=== PATIENT | male | born 1985 | race Caucasian/White ===

== ENCOUNTER 2020-01-20 12:20 | Emergency (ER) | payer OTHER, SELFPAY ==
[2020-01-20 12:25] VITALS: BP 144/99; PULSE 92; RESP 18; TEMP 36.9; O2SAT 99
--- NOTE | 2020-01-20 12:30 | DI.RAD_ITS ---
EXAM: XR ANKLE LT COMPLETE CLINICAL HISTORY: twist/pain, felt crunch TECHNIQUE: 2D digital imaging was performed. COMPARISON: No exams were available for comparison FINDINGS: No acute fracture is identified. There is a smoothly marginated bony density at the medial malleolu s. A plantar calcaneal spur is seen. Soft tissues: Swelling over the lateral malleolus. The ankle mortise appears intact. IMPRESSION: Lateral soft tissue swelling. No acute bony abnormality.
--- NOTE | 2020-01-20 13:14 | ED.GENADUL_ITS ---
Discharge Plan Disposition Patient Disposition: HOME Condition: Stable Discharge Details Chief Complaint: Orthopedic Clinical Impression: Ankle sprain Primary Care Provider: None,None ED Provider: Venancio Rios Home Meds and New Rx's Prescriptions: No Action No Known Home Meds RF: 0 Discharge Instructions Instructions: Ankle Sprain (ED) Additional Instructions: Rest, elevate, cool compresses every 2 hours for 20 days. Wear splint and use crutches as needed, advance activity as tolerated. Please watch for new or worsening symptoms and return to the ER for any concerns. I do recommend establishing a local primary care provider for your ongoing outpatient needs Medical Decision Making Presents after twisting his left ankle. Patient appears well, nontoxic. He has neuro, vascular, tendon intact. Will obtain x-ray to rule out any bony involvement Reviewed x-ray, I see some soft tissue swelling as well as a well-corticated avulsion which appears old. Patient does report a severe sprain in the past that he never had had evaluated. Discussed x-ray findings with patient. Patient was placed into a an air stirrup splint and crutches given. Patient has no additional questions or concerns Medical Records Medical records reviewed: Yes I reviewed the patient's medical records. Imaging Data Radiologic Study: Attestation: I personally reviewed and interpreted this imaging study as follows: Imaging: X-Ray Radiologist's impression: Lateral soft tissue swelling, no acute bony abnormality HPI General Mode of arrival: ambulatory . Date/Time Provider Initiated Documentation: 01/20/20 12:24 . Limitations to Documentation: no limitations . Information obtained by: patient . HPI Narrative: This is a 34-year-old male with no significant past medical history reporting left ankle pain moderate rest more severe with movement or weightbearing. Approximately 45 minutes ago he slipped from a small step twisting his left ankle and hearing a crunch. He denies any other injury. Denies numbness, tingling, weakness. Related Data Home Medications Medication Instructions Recorded Confirmed Unknown [No Known Home Meds] 07/29/14 06/17/17 Allergies Allergy/AdvReac Type Severity Reaction Status Date / Time doxycycline AdvReac Intermediate Visual Unverified 01/20/20 12:34 Disturbances codeine AdvReac Psychosis Unverified 01/20/20 12:34 Penicillins AdvReac Diarrhea Unverified 01/20/20 12:34 General Stated Complaint: Orthopedic LINDA: 3 Review of Systems Constitutional Constitutional: Denies weakness Cardiovascular Cardiovascular: Denies chest pain and Denies dyspnea Respiratory Respiratory: Denies dyspnea Gastrointestinal Gastrointestinal: Denies nausea Musculoskeletal Musculoskeletal: Denies numbness and Denies tingling Integumentary/Breasts Skin/Breast: Denies rash Neurologic Neurologic: Denies numbness, Denies tingling and Denies weakness [facility] Social History Smoking/Tobacco Use Status: Current every day Tobacco Type: cigarettes Alcohol Intake: current Alcohol Intake frequency: a few times a week Alcohol type: beer Drug use: Never Substance use type: does not use Do you feel safe at home: Yes Do you feel safe in your relationship?: Yes Exam Const General: cooperative, healthy appearing, comfortable and no acute distress Orientation: alert and awake HENMT Head: normal to inspection, normocephalic and atraumatic Mouth: moist mucous membranes Eyes Conjunctivae: conjunctivae normal Neck Neck: normal visual inspection, trachea midline and supple Resp Effort & Inspection: normal respiratory effort and able to speak in complete sentences Cardio Rate: regular rate Rhythm: regular rhythm Skin General skin exam: no rashes or lesions noted Neuro General: patient alert, patient awake, moves all extremities and no focal motor deficits Sensory Exam: no sensory deficits noted Extrem Left lower extremity: full ROM, normal capillary refill and ankle Details: abnormal to inspection, tenderness Location: of the lateral malleolus and swelling Details: laterally; no cyanosis and no edema Psych Appearance: grossly normal Mental Status: mental status grossly normal Course Vital Signs Vital signs: Vital Signs Temperature 36.9 C 01/20/20 12:25 Pulse 92 H 01/20/20 12:25 Respiratory Rate 18 01/20/20 12:25 Blood Pressure 144/99 H 01/20/20 12:25 Pulse Oximetry 99 01/20/20 12:25 Temperature 36.9 C 01/20/20 12:25 Pulse 92 H 01/20/20 12:25 Respiratory Rate 18 01/20/20 12:25 Respiratory Effort Non-Labored 01/20/20 12:28 Blood Pressure 144/99 H 01/20/20 12:25 Blood Pressure Position Sitting 01/20/20 12:25 Pulse Oximetry 99 01/20/20 12:25 Oxygen Delivery Method Room Air 01/20/20 12:25 Oxygen Flow Rate 0 01/20/20 12:25 Pain Level 7 01/20/20 12:28
--- NOTE | 2020-01-20 13:35 | NUR.NOTE ---
pt is awake alert awaiting radiology results. states his pain is under control. Nursing Note:
[2020-01-20 13:50] VITALS: BP 140/92; PULSE 74; RESP 16; O2SAT 100
== END 2020-01-20 13:48 | disposition home or self-care (01) ==
PROVIDERS: Emergency Provider Physician Assistant
DX: S93.402A Sprain of unspecified ligament of left ankle, initial encounter (principal); X50.9XXA Other and unspecified overexertion or strenuous movements or postures, initial encounter
CPT/HCPCS: 99283; 73610; E0114; L4350

== ENCOUNTER 2020-04-09 07:43 | Outpatient (CLI) | payer OTHER, SELFPAY ==
[2020-04-11 09:57] LABS: SARS-CoV-2 RNA Undetected (Undetected); SARS-CoV-2 Specimen Source Nasopharynx
== END 2020-04-09 08:03 ==
PROVIDERS: Visit Provider Family Medicine
DX: Z20.828 Contact with and (suspected) exposure to other viral communicable diseases (principal)
CPT/HCPCS: U0003

== ENCOUNTER 2020-12-23 15:08 | Emergency (ER) | payer OTHER, SELFPAY ==
[2020-12-23] VITALS (27 sets, daily range): BP systolic 129–157; BP diastolic 72–92; PULSE 68–103; RESP 8–19; TEMP 36.6; O2SAT 97–99
--- NOTE | 2020-12-23 15:00 | RT.EKG_ITS ---
APPROVED REPORT Exam: Resting ECG Patient Location: E HR:94 bpm ECG Measurements Heart Rate 94 AXIS OK 123 P 22 QRSd 83 QRS 26 QT 348 T 55 QTc 438 Conclusion Sinus rhythm...normal P axis, V-rate 60- 99 Ventricular premature complex...V complex w/ short R-R interval. PVCs. No STEMI. I have reviewed and interpreted ECG and agree with software generated interpretation.TN.
[2020-12-23 15:33] LABS: Abs Immature Grans 0.01 10^3/uL (0.0-0.06); Absolute Basophil Count 0.05 10^3/uL (0.0-0.2); Absolute Eosinophil Count 0.22 10^3/uL (0.0-0.7); Absolute Lymphocyte Count 2.52 10^3/uL (1.2-3.4); Absolute Monocyte Count 0.55 10^3/uL (0.1-0.8); Absolute Neutrophil Count 4.43 10^3/uL (1.2-6.7); Basophils % 0.6; Eosinophils % 2.8; HCT 46.1 % (40.0-50.0); HGB 15.6 g/dL (13.5-17.5); Immature Grans % 0.1; Lymphocytes % 32.4; MCH 30.2 pg (27.0-33.0); MCHC 33.8 % (32.0-36.0); MCV 89.2 fL (80-95); MPV 9.2 fL (8.0-11.0); Monocytes % 7.1; Nucleated RBC 0 %; Platelet Count 211 10^3/uL (130-400); RBC 5.17 10^6/uL (4.36-5.78); RDW 12.4 % (11.8-14.1); WBC 7.78 10^3/uL (4.4-10.8)
[2020-12-23 15:45] LABS: PTT Activated 24.9 sec (21.0-27.5); Prothrombin Time 9.8 sec (9.3-11.0)
[2020-12-23 15:56] LABS: ALT 30 U/L (16-63); AST 16 U/L (15-37); Albumin 3.9 g/dL (3.4-5.0); Alkaline Phosphatase 64 U/L (46-116); Anion Gap 9.6 mmol/L (3-11); BUN 22 mg/dL (7-18); Bilirubin, Total 0.3 mg/dL (0.2-1.0); CO2 26.4 mmol/L (21.0-32.0); Calcium 8.5 mg/dL (8.5-10.1); Chloride 104 mmol/L (98-107); Glucose 128 mg/dL (74-106); Magnesium 2.1 mg/dL (1.8-2.4); Potassium 3.9 mmol/L (3.5-5.1); Sodium 140 mmol/L (136-145); TSH (W/Ref FT4) 0.97 uIU/mL (0.36-3.74); Total Protein 7.3 g/dL (6.4-8.2)
--- NOTE | 2020-12-23 16:00 | DI.CT_ITS ---
EXAM: CT CHEST PE CTA CLINICAL HISTORY: chest pain, palpitations, r/o PE. TECHNIQUE: Imaging Protocol: CT angiography of the chest was performed using pulmonary embolus grayson col. Multi planar reconstructions were performed. CONTRAST MATERIAL: Intravenous: Omnipaque 350 Contrast volume: 100 cc COMPARISON: No exams were available for comparison FINDINGS: CHEST: PULMONARY ARTERIES: Less than optimal bolus injection. There are no intraluminal filling defects to suggest acute pulmonary emboli. LUNGS: There are no infiltrates nor evidence of pulmonary infarction.. There are no pleural effusions . MEDIASTINUM: There is no hilar nor mediastinal adenopathy. Visualized thyroid unremarkable. CARDIAC: Heart size is normal. There is no pericardial effusion.Caliber of the thoracic aorta is wit hin normal limits. There is no evidence of aortic dissection. There is no evidence of shift of the interventricular septum. OSSEOUS: No significant osseous lesions.. OTHER: The lower most image of this study reveals a partially included 2.1 by 2.0 centimeter hypodens e lesion in the spleen, difficult to assess on this study. May represent cyst or hemangioma or other more significant pathology. IMPRESSION: 1. Suboptimal bolus injection. No evidence of obvious acute pulmonary emboli. No evidence of pulmon jose l infarction.No pleural effusions. 2. No evidence of aortic dissection. No pericardial effusion. 3. Incidentally noted is a 2 centimeter x 2 centimeter hypodense lesion in the spleen, only partially included in the field of view. This may represent a benign cyst or hemangioma but cannot exclude ot her more concerning splenic pathology. Recommend further imaging, starting with ultrasound. RADIATION DOSE DELIVERED: LINK-TO-SR Total DLP DATA REPOSITORY: All CT scans at this facility are submitted to the National Radiology Data Registry (NRDR) Dose Index Registry (DIR) with the [employer] ([employer]). RADIATION OPTIMIZATION: All CT scans at this facility use at least one of these dose optimization te chniques: automated exposure control; mA and/or kV adjustment per patient size (includes targeted exa ms where dose is matched to clinical indication); or iterative reconstruction.
--- NOTE | 2020-12-23 16:00 | DI.CT_ITS ---
EXAM: CT HEAD WO CLINICAL HISTORY: dizziness, vertigo, r/o acute cva. TECHNIQUE: Imaging Protocol: Axial computed tomography images with coronal and sagittal reformatted images were created and reviewed COMPARISON: No exams were available for comparison FINDINGS: There are no skull fractures. Prominent polyp or post inflammatory retention cysts noted in the rig ht maxillary sinus, this superimposed upon mucosal thickening. The visualized left maxillary sinus i s clear as are the remainder of the paranasal sinuses and mastoid air cells. There is no evidence of intracranial hemorrhage, mass effect, or shift of midline structures. There are no extra-axial fluid collections. The ventricles are not enlarged or shifted and there is no blo od within the ventricular system nor within the basal cisterns. IMPRESSION: No acute intracranial findings on this noninfused CT scan of the brain. Retention cyst or polyp measuring 2.2 x 2.2 cm in the right maxillary sinus noted, this superimposed upon echoes all thickening. No associated fluid level nor bone dehiscence. RADIATION DOSE DELIVERED: 826.57mGy.cm Total DLP DATA REPOSITORY: All CT scans at this facility are submitted to the National Radiology Data Registry (NRDR) Dose Index Registry (DIR) with the [employer] ([employer]). RADIATION OPTIMIZATION: All CT scans at this facility use at least one of these dose optimization te chniques: automated exposure control; mA and/or kV adjustment per patient size (includes targeted exa ms where dose is matched to clinical indication); or iterative reconstruction.
[2020-12-23 16:11] LABS: Troponin I < 0.05 ng/mL (<0.06)
--- NOTE | 2020-12-23 16:15 | W.ED.GENAD ---
Discharge Plan Disposition Patient Disposition: HOME Condition: Improving Discharge Details Clinical Impression: Palpitations, Atypical chest pain, Dizziness, Stress Primary Care Provider: None,None ED Provider: Beryl Wilde Home Meds and New Rx's Prescriptions: No Action No Known Home Meds RF: 0 Discharge Instructions Instructions: Chest Pain (ED), Heart Palpitations (ED), Stress (ED), Dizziness (ED) Additional Instructions: Drink plenty of fluids and get plenty of rest. Your blood pressure was moderately elevated here today. Be sure to watch your sodium intake as a diet high in sodium can contribute to high blood pressure. Return the traffic monitor specialist to the hospital as directed by respiratory therapy. Call your primary care doctor's office tomorrow to schedule a follow-up appointment for reevaluation in the next 1 to 2 weeks and for results of your traffic monitor specialist and for recheck of your blood pressure. Return immediately to the emergency department if you develop any worsening or new concerning symptoms. 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 EKG on arrival notes a rate of 94, PVCs, sinus, no STEMI and nondiagnostic. Blood pressure initially hypertensive at 157/92. Blood pressure then improved to 138/80. Patient appears anxious. He has minimal left anterior lower chest tenderness to palpation. His lungs are clear. He appears nontoxic. Considering patient's long history of palpitations that awaken him from sleep, appears more likely consistent with anxiety rather than PE or arrhythmia. Considering patient's smoking history and complaints of chest pain, will check screening labs and a CT chest to rule out PE. Patient describes his intermittent dizziness as a vertigo sensation. He has no focal deficits and did not suspect an acute neurologic process, however will obtain a CT head. Will give patient IV fluids, IV Ativan and IV Toradol and reassess. Labs and imaging reviewed. Normal white blood cell count. Troponin negative. TSH negative. CT head negative. CT chest negative. Patient reassessed and he feels better and feels good to go home. Considering patient's frequent palpitations, will send with a 48-hour Holter monitor. Occasional PVCs noted here on the monitor otherwise no evidence of other arrhythmia. Discussed that his symptoms may be related to stress as he admits to an increase this recently. Patient does not have a primary care doctor. Will place patient on care management list to arrange for a follow-up appointment with the primary care doctor for reevaluation and for results of the traffic monitor specialist. Usual and customary return precautions given prior to discharge. Medical Records Medical records reviewed: Yes I reviewed the patient's medical records. Imaging Data Radiologic Study: Radiologist's impression: CT Head Without Contrast Exam date and time: 12/23/2020 4:21 PM Age: 35 years old Clinical indication: Other: Dizziness, vertigo, R/O acute CVA TECHNIQUE: Imaging protocol: Computed tomography of the head without contrast. Radiation optimization: All CT scans at this facility use at least one of these dose optimization techniques: automated exposure control; mA and/or kV adjustment per patient size (includes targeted exams where dose is matched to clinical indication); or iterative reconstruction. COMPARISON: No relevant prior studies available. FINDINGS: Brain: Normal. No hemorrhage. Unremarkable white matter. No mass effect. Cerebral ventricles: No ventriculomegaly. Bones/joints: Unremarkable. No acute fracture. Paranasal sinuses: A mucous retention cyst of the right maxillary sinus is incidentally Mastoid air cells: Visualized mastoid air cells are well aerated. Soft tissues: Unremarkable. IMPRESSION: No acute intracranial abnormality. CT Angiography Chest With Contrast Exam date and time: 12/23/2020 4:30 PM Age: 35 years old Clinical indication: Other: Chest pain, palpitations, R/O pe TECHNIQUE: Imaging protocol: Computed tomographic angiography of the chest with contrast. 3D rendering (Not supervised by radiologist): MIP and/or 3D reconstructed images were created by the technologist. Radiation optimization: All CT scans at this facility use at least one of these dose optimization techniques: automated exposure control; mA and/or kV adjustment per patient size (includes targeted exams where dose is matched to clinical indication); or iterative reconstruction. Contrast material: OMNIPAQUE 350; Contrast volume: 100 ml; Contrast route: INTRAVENOUS (IV); COMPARISON: No relevant prior studies available. FINDINGS: Pulmonary arteries: Normal. No pulmonary emboli. Aorta: Unremarkable. No aortic aneurysm. No aortic dissection. Lungs: Unremarkable. No consolidation. No masses. Pleural spaces: Unremarkable. No pneumothorax. No pleural effusion. Heart: Unremarkable. No cardiomegaly. No pericardial effusion. Lymph nodes: Unremarkable. No enlarged lymph nodes. Bones/joints: Unremarkable. No acute fracture. Soft tissues: Unremarkable. IMPRESSION: No acute findings. Lab Data Lab results reviewed: Yes I reviewed the patient's lab results. Labs: Laboratory Tests Range/Units 12/23/20 12/23/20 12/23/20 15:28 15:28 15:28 WBC (4.4-10.8) 10^3/uL 7.78 RBC (4.36-5.78) 10^6/uL 5.17 Hgb (13.5-17.5) g/dL 15.6 Hct (40.0-50.0) % 46.1 MCV (80-95) fL 89.2 MCH (27.0-33.0) pg 30.2 MCHC (32.0-36.0) % 33.8 RDW (11.8-14.1) % 12.4 Plt Count (130-400) 10^3/uL 211 MPV (8.0-11.0) fL 9.2 Immature Gran % 0.1 Neutrophils % 57.0 Lymphocytes % 32.4 Monocytes % 7.1 Eosinophils % 2.8 Basophils % 0.6 Nucleated RBC % % 0 Absolute Neutrophils (1.2-6.7) 10^3/uL 4.43 Absolute Lymphocytes (1.2-3.4) 10^3/uL 2.52 Absolute Monocytes (0.1-0.8) 10^3/uL 0.55 Absolute Eosinophils (0.0-0.7) 10^3/uL 0.22 Absolute Basophils (0.0-0.2) 10^3/uL 0.05 PT (9.3-11.0) sec 9.8 INR (0.9-1.1) 1.0 APTT (21.0-27.5) sec 24.9 Sodium (136-145) mmol/L 140 Potassium (3.5-5.1) mmol/L 3.9 Chloride (98-107) mmol/L 104 Carbon Dioxide (21.0-32.0) mmol/L 26.4 Anion Gap (3-11) mmol/L 9.6 BUN (7-18) mg/dL 22 H Creatinine (0.70-1.30) mg/dL 1.0 Estimated GFR/1.73 m2 (mL/min/1.73m2) >= 60.00 Glucose (74-106) mg/dL 128 H Calcium (8.5-10.1) mg/dL 8.5 Magnesium (1.8-2.4) mg/dL 2.1 Total Bilirubin (0.2-1.0) mg/dL 0.3 AST (15-37) U/L 16 ALT (16-63) U/L 30 Alkaline Phosphatase (46-116) U/L 64 Troponin I (<0.06) ng/mL < 0.05 Total Protein (6.4-8.2) g/dL 7.3 Albumin (3.4-5.0) g/dL 3.9 TSH (0.36-3.74) uIU/mL 0.97 ECG Data Attestation: I personally reviewed and interpreted this ECG (s) as follows: Interpretation: Rate of 94, PVCs, sinus, no acute ST elevation or depression. VT 123. QRS 83. QTc 438. HPI General Mode of arrival: ambulatory. Date/Time Provider Initiated Documentation: 12/23/20 15:23. Limitations to Documentation: no limitations. Information obtained by: patient. 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 Patient states he has been awaking in the night for the past year with sensation of heart pounding and palpitations. He states this does happen throughout the day at times and has been occurring more frequently over the past few weeks. He states he also notices palpitations after he smokes a cigarette and when he feels mentally stressed . He also states that he had an episode of dizziness a few weeks ago which scared him and has been occurring more frequently. Patient states he was standing when he felt a lightheaded and spinning sensation which then resolved after a few minutes. Patient states he has been experiencing intermittent episodes of spinning sensations occurring at random when sitting and standing. He also states that today he was laying down and turned to his side and developed left-sided chest pain. He states it radiated to his back and left arm. Patient states his left-sided chest pain is currently /10. He also admits to intermittent left anterior lower chest pain that he notes sometimes after working and is tender to touch and worse with movement. He states he has had increased stress lately and is taking care of a puppy and has not been sleeping. He states he feels that his symptoms are likely due to to stress and anxiety. He states he noticed when talking with the nurse here and he became nervous, there were extra beats on the monitor. He denies any fever, cough, shortness of breath, nausea, vomiting, abdominal pain, recent travel, recent surgeries, leg pain or swelling. Related Data Home Medications Medication Instructions Recorded Confirmed Unknown [No Known Home Meds] 07/29/14 12/23/20 Allergies Allergy/AdvReac Type Severity Reaction Status Date / Time doxycycline AdvReac Intermediate Visual Unverified 01/20/20 12:34 Disturbances codeine AdvReac Psychosis Unverified 01/20/20 12:34 Penicillins AdvReac Diarrhea Unverified 01/20/20 12:34 tetracycline AdvReac Visual Unverified 12/23/20 15:16 Disturbances General Stated Complaint: Chest Pain LINDA: 2 Review of Systems All systems reviewed & are unremarkable except as noted in HPI and below Constitutional Constitutional: Reports as per HPI, Denies chills and Denies fever(s) Eyes Eyes: Denies blurry vision ENT Ears, Nose, Mouth, and Throat: Denies dizziness, Denies sore throat and Denies throat swelling Cardiovascular Cardiovascular: Reports chest pain, Reports rapid heart rate and Reports dyspnea Respiratory Respiratory: Denies cough and Reports dyspnea Gastrointestinal Gastrointestinal: Denies abdominal pain, Denies diarrhea and Denies vomiting Genitourinary Genitourinary: Denies hematuria and Denies dysuria Musculoskeletal Musculoskeletal: Denies back pain and Denies numbness Integumentary/Breasts Skin/Breast: Denies lesions and Denies rash Neurologic Neurologic: Denies dizziness, Denies localized weakness and Denies numbness Allergic/Immunologic Allergic/Immunologic: Denies throat swelling [facility] Medical History (Updated 12/23/20 @ 17:31 by Beryl Wilde DO) Hirschsprung's disease Surgical History (Updated 12/23/20 @ 16:16 by Beryl Wilde DO) History of abdominal surgery Multiple secondary to Hirschsprung's disease Social History Smoking/Tobacco Use Status: Current every day Tobacco Type: cigarettes Smoking risk assessment performed?: Yes Alcohol Intake: current Alcohol Intake frequency: a few times a week Alcohol type: beer Drug use: Never Substance use type: does not use Do you feel safe at home: Yes Do you feel safe in your relationship?: Yes Exam Const General: cooperative, healthy appearing and no acute distress HENMT Head: normal to inspection Ears: hearing grossly normal bilaterally, external ears normal and TM's normal bilaterally General nose exam: external nose normal Face and sinus: normal facial exam Mouth: oral mucosae normal Eyes General: appearance normal, both eyes and all related structures Pupils: PERRL EOM: EOM intact bilaterally Neck Neck: normal visual inspection and No submandibular swelling Lymphatic: no lymphadenopathy noted Chest Chest: normal inspection of the chest Chest/axillae images: 1. Localized area of tenderness to palpation L anterior inferior chest Resp Effort & Inspection: normal respiratory effort and able to speak in complete sentences Auscultation: clear to auscultation bilaterally Cardio Rate: regular rate Rhythm: regular rhythm GI Inspection: normal to inspection Palpation: soft, not firm, not rigid and nontender Auscultation: normal bowel sounds Skin General skin exam: no rashes or lesions noted Neuro General: patient alert, patient awake and patient oriented x3 Cognition: normal cognition Speech: speech normal Motor: muscle tone normal throughout Sensory Exam: no sensory deficits noted Extrem General: normal to inspection, full ROM, capillary refill normal, no calf tenderness bilaterally and no edema Psych Appearance: grossly normal Mental Status: mental status grossly normal Speech and Movement: speech and movement normal Affect: normal affect Course Vital Signs Vital signs: Vital Signs Temperature 97.9 F 12/23/20 15:13 Pulse 92 H 12/23/20 15:13 Respiratory Rate 15 12/23/20 15:13 Blood Pressure 157/92 H 12/23/20 15:13 Pulse Oximetry 98 12/23/20 15:13 Temperature 97.9 F 12/23/20 15:13 Temperature Source Skin 12/23/20 15:13 Pulse 95 H 12/23/20 15:30 Pulse 91 H 12/23/20 15:31 Respiratory Rate 19 12/23/20 15:31 Respiratory Effort Non-Labored 12/23/20 15:31 Respiratory Depth Normal 12/23/20 15:31 Respiratory Pattern Normal 12/23/20 15:31 Blood Pressure 144/88 H 12/23/20 15:30 Blood Pressure Mean 100 12/23/20 15:30 Blood Pressure Position Sitting 12/23/20 15:13 Pulse Oximetry 98 12/23/20 15:31 Oxygen Delivery Method Room Air 12/23/20 15:13 Oxygen Flow Rate 0 12/23/20 15:13 Pain Level 3 12/23/20 15:13 Lab/Test Results Lab/Test Results: Laboratory Tests Range/Units 12/23/20 12/23/20 12/23/20 15:28 15:28 15:28 WBC (4.4-10.8) 10^3/uL 7.78 RBC (4.36-5.78) 10^6/uL 5.17 Hgb (13.5-17.5) g/dL 15.6 Hct (40.0-50.0) % 46.1 MCV (80-95) fL 89.2 MCH (27.0-33.0) pg 30.2 MCHC (32.0-36.0) % 33.8 RDW (11.8-14.1) % 12.4 Plt Count (130-400) 10^3/uL 211 MPV (8.0-11.0) fL 9.2 Immature Gran % 0.1 Neutrophils % 57.0 Lymphocytes % 32.4 Monocytes % 7.1 Eosinophils % 2.8 Basophils % 0.6 Nucleated RBC % % 0 Absolute Neutrophils (1.2-6.7) 10^3/uL 4.43 Absolute Lymphocytes (1.2-3.4) 10^3/uL 2.52 Absolute Monocytes (0.1-0.8) 10^3/uL 0.55 Absolute Eosinophils (0.0-0.7) 10^3/uL 0.22 Absolute Basophils (0.0-0.2) 10^3/uL 0.05 PT (9.3-11.0) sec 9.8 INR (0.9-1.1) 1.0 APTT (21.0-27.5) sec 24.9 Sodium (136-145) mmol/L 140 Potassium (3.5-5.1) mmol/L 3.9 Chloride (98-107) mmol/L 104 Carbon Dioxide (21.0-32.0) mmol/L 26.4 Anion Gap (3-11) mmol/L 9.6 BUN (7-18) mg/dL 22 H Creatinine (0.70-1.30) mg/dL 1.0 Estimated GFR/1.73 m2 (mL/min/1.73m2) >= 60.00 Glucose (74-106) mg/dL 128 H Calcium (8.5-10.1) mg/dL 8.5 Magnesium (1.8-2.4) mg/dL 2.1 Total Bilirubin (0.2-1.0) mg/dL 0.3 AST (15-37) U/L 16 ALT (16-63) U/L 30 Alkaline Phosphatase (46-116) U/L 64 Troponin I (<0.06) ng/mL < 0.05 Total Protein (6.4-8.2) g/dL 7.3 Albumin (3.4-5.0) g/dL 3.9 TSH (0.36-3.74) uIU/mL 0.97
[2020-12-23] MEDS: Omnipaque 350 MG/ML 100 ML BTL IJ (16:37)
[2020-12-23] MEDS: Normal Saline Flush 10 ML SYR IVP (16:38)
[2020-12-23] MEDS: Normal Saline - Diluent 50 ML VIAL IV (16:38)
--- NOTE | 2020-12-23 16:49 | DI.VRAD_ITS ---
PROCEDURE INFORMATION: Exam: CT Angiography Chest With Contrast Exam date and time: 12/23/2020 4:30 PM Age: 35 years old Clinical indication: Other: Chest pain, palpitations, R/O pe TECHNIQUE: Imaging protocol: Computed tomographic angiography of the chest with contrast. 3D rendering (Not supervised by radiologist): MIP and/or 3D reconstructed images were created by the technologist. Radiation optimization: All CT scans at this facility use at least one of these dose optimization techniques: automated exposure control; mA and/or kV adjustment per patient size (includes targeted exams where dose is matched to clinical indication); or iterative reconstruction. Contrast material: OMNIPAQUE 350; Contrast volume: 100 ml; Contrast route: INTRAVENOUS (IV); COMPARISON: No relevant prior studies available. FINDINGS: Pulmonary arteries: Normal. No pulmonary emboli. Aorta: Unremarkable. No aortic aneurysm. No aortic dissection. Lungs: Unremarkable. No consolidation. No masses. Pleural spaces: Unremarkable. No pneumothorax. No pleural effusion. Heart: Unremarkable. No cardiomegaly. No pericardial effusion. Lymph nodes: Unremarkable. No enlarged lymph nodes. Bones/joints: Unremarkable. No acute fracture. Soft tissues: Unremarkable. IMPRESSION: No acute findings. Dictated and Authenticated by: Raymon James MD. Ordering:JOSELITO Cordoba MD
--- NOTE | 2020-12-23 16:49 | DI.VRAD_ITS ---
PROCEDURE INFORMATION: Exam: CT Head Without Contrast Exam date and time: 12/23/2020 4:21 PM Age: 35 years old Clinical indication: Other: Dizziness, vertigo, R/O acute CVA TECHNIQUE: Imaging protocol: Computed tomography of the head without contrast. Radiation optimization: All CT scans at this facility use at least one of these dose optimization techniques: automated exposure control; mA and/or kV adjustment per patient size (includes targeted exams where dose is matched to clinical indication); or iterative reconstruction. COMPARISON: No relevant prior studies available. FINDINGS: Brain: Normal. No hemorrhage. Unremarkable white matter. No mass effect. Cerebral ventricles: No ventriculomegaly. Bones/joints: Unremarkable. No acute fracture. Paranasal sinuses: A mucous retention cyst of the right maxillary sinus is incidentally Mastoid air cells: Visualized mastoid air cells are well aerated. Soft tissues: Unremarkable. IMPRESSION: No acute intracranial abnormality. Dictated and Authenticated by: Raymon James MD. Ordering:JOSELITO Cordoba MD
[2020-12-23] MEDS: Normal Saline 1,000 ML 1000 ML IV (17:21)
--- NOTE | 2020-12-23 17:30 | HOLTER_ITS ---
APPROVED REPORT Exam Type: HOLTER MONITOR APPLICATION Reason for Test: Palpitations Patient Location: E Conclusion This is a 48-hour Holter monitor ordered for indication of dizziness. The patient was in normal sinus rhythm for the majority of the recording with an average heart rate o f 90 bpm There were no episodes of ventricular tachycardia and rare PVCs. There were no episodes of supraventricular tachycardia and 8 total PACs. There were no episodes of atrial fibrillation, no pauses greater than 3 seconds and no evidence of hi gh degree heart block. There were numerous patient triggered events associated with activities such as being scared by dog or being annoyed none of which were associated with significant arrhythmia.
[2020-12-23] MEDS: Ketorolac 30 MG/ML VIAL IVP (17:41)
--- NOTE | 2020-12-23 17:55 | NUR.NOTE ---
Referral to Care Management to establish pcp in 1 week for chest pain, a 48 hour holter monitor was placed 12/23/20.Nursing Note:
== END 2020-12-23 18:15 | disposition home or self-care (01) ==
PROVIDERS: Physician Assistant; Emergency Provider Physician Assistant
DX: R00.2 Palpitations (principal); R07.89 Other chest pain; R42 Dizziness and giddiness; F43.8 Other reactions to severe stress; R03.0 Elevated blood-pressure reading, without diagnosis of hypertension
CPT/HCPCS: 36415; 71275; 80053; 93005; 96361; 96374; 99285; 70450; 83735; 84443; 84484; 85025; 85610; 85730; 93010; 93225; J1885; J3490

== ENCOUNTER 2020-12-23 17:15 | Outpatient (RCR) | payer OTHER, SELFPAY | END 2020-12-26 23:59 | disposition home or self-care (01) | LOC: RT 17:15 | PROVIDERS: Visit Provider Physician Assistant | DX: R00.2 Palpitations (principal) | CPT/HCPCS: 93225; 93226 ==

== ENCOUNTER 2021-01-25 01:49 | Outpatient (CLI) | payer OTHER, SELFPAY ==
[2021-01-25 13:16] LABS: Hemoglobin A1C 5.6 % (<5.7)
[2021-01-25 13:20] LABS: Cholesterol 220 mg/dL (<200); Triglyceride 100 mg/dL (<150)
[2021-01-25 13:39] LABS: Calculated LDL 157 mg/dL (<100); HDL Cholesterol 43 mg/dL (40-60)
== END 2021-01-25 01:50 | disposition home or self-care (01) ==
LOC: LOS 01:50
PROVIDERS: PCP Nurse Practitioner Family; Visit Provider Nurse Practitioner Family
DX: Z13.1 Encounter for screening for diabetes mellitus (principal); Z13.220 Encounter for screening for lipoid disorders
CPT/HCPCS: 36415; 80061; 83036

== ENCOUNTER 2022-03-08 11:00 | Outpatient (REF) | payer OTHER, SELFPAY ==
[2022-03-09 13:42] LABS: COVID-19 RT-PCR UVMMC Result Negative (Negative)
== END 2022-03-08 11:01 | disposition home or self-care (01) ==
LOC: LBN 11:00
PROVIDERS: PCP Nurse Practitioner Family; Visit Provider Nurse Practitioner Family
DX: Z20.822 Contact with and (suspected) exposure to COVID-19 (principal); J34.89 Other specified disorders of nose and nasal sinuses
CPT/HCPCS: U0003

== ENCOUNTER 2022-03-22 09:31 | Emergency (ER) | payer OTHER, SELFPAY ==
[2022-03-22 09:33] VITALS: BP 175/96; PULSE 108; RESP 16; TEMP 36.7; O2SAT 99
--- NOTE | 2022-03-22 09:34 | W.ED.GENAD ---
Discharge Plan Disposition Patient Disposition: HOME Condition: Stable Discharge Details Clinical Impression: Accidental benzocaine overdose Primary Care Provider: Dao Nicolas ED Provider: Beryl Wilde Home Meds and New Rx's Prescriptions: Continued amoxicillin-pot clavulanate [Augmentin] 875-125 mg tablet 1 tab PO BID Qty: 20 0RF Discharge Instructions Instructions: Benzocaine/Menthol (By mouth) Additional Instructions: Drink plenty of fluids and get plenty of rest. Refrain from any further Orajel today. When you use it, place a small amount on a Q-tip to place to the affected areas. Follow-up with your primary care doctor in 1 week as needed. Return to the emergency department with any worsening or new concerning symptoms. Discharge Data Discharge Date/Time-TO BE ENTERED AT DEPARTURE: 03/22/22 10:36 Discharge Physician: Beryl Wilde Medical Decision Making 0962 -- 36yo M presents for nausea after ingesting too much orajel over a 90 minute period this morning. Patient states he called poison control and was advised to come here for further evaluation mainly for concern with benzocaine 1000 --discussed with poison control -- --with benzocaine -- with toxic overdose which may be unclear in the amount the patient ingested, concern would be methemoglobinemia. Can consider checking a CBC and methemoglobin but if patient has no complaint of shortness of breath, no signs of duskiness or cyanosis with normal oxygen saturation, likely no lab tests needed. -- With menthol, can mostly cause GI symptoms and recommends antiemetic and fluids. -- Can consider observation for 1 hour, however if patient is stable at this time, as his ingestion was 4.5 hours ago, can likely discharge at this time. 1030 --patient states he would rather go home and feels much better. He declined any antiemetics. Discussed that his symptoms could be multifactorial in the setting of lack of sleep, significant caffeine intake in addition to taking a strong antibiotic such as Augmentin. He states his allergy to penicillin in the past has been nausea and diarrhea. He is advised to drink plenty of fluids, eat yogurt, take a probiotic and make sure to take the antibiotic with food. He declines any antiemetic on discharge. His blood pressure significantly improved to 136/80. Oxygen saturation remained within normal limits. Advised to follow up with the primary care doctor for re-evaluation. Usual and customary return precautions given prior to discharge. Medical Records Medical records reviewed: Yes I reviewed the patient's medical records. HPI General Mode of arrival: ambulatory. Date/Time Provider Initiated Documentation: 03/22/22 09:32. Limitations to Documentation: no limitations. Information obtained by: patient. HPI Narrative: Patient is a 36-year-old male who presents to the ED with a complaint of nausea, fatigue and polyuria since 1 hour after ingesting what he describes was a dollop of orajel over a 90 minute period this morning. Patient states between 4 AM and 530 he placed approximately a toothpaste size amount of Orajel within his mouth at the site of a tooth infection and feels he may have swallowed some. He states approximately 30 minutes later he developed nausea, fatigue and felt that he was urinating frequently. He denies any dysuria, hematuria or penile discharge. He states he also only slept 3 hours and ingested a large amount of coffee this morning. He states his symptoms are now overall improved but with some nausea. He states he called poison control and their main concern of ingredients is benzocaine and advised him to come to the emergency department for further evaluation. Related Data Home Medications Medication Instructions Recorded Confirmed amoxicillin 875 mg-potassium 1 tab PO BID #20 tabs 02/21/21 03/22/22 clavulanate 125 mg tablet (Augmentin) Previous Rx's Medication Instructions Recorded amoxicillin 875 mg-potassium 1 tab PO BID #20 tabs 02/21/21 clavulanate 125 mg tablet (Augmentin) Allergies Allergy/AdvReac Type Severity Reaction Status Date / Time doxycycline AdvReac Intermediate Visual Verified 03/22/22 09:39 Disturbances codeine AdvReac Psychosis Verified 03/22/22 09:39 Penicillins AdvReac Diarrhea Verified 03/22/22 09:39 tetracycline AdvReac Visual Verified 03/22/22 09:39 Disturbances General Stated Complaint: OD/Poison LINDA: 2 Review of Systems All systems reviewed & are unremarkable except as noted in HPI and below Constitutional Constitutional: Reports as per HPI, Denies chills and Denies fever(s) Eyes Eyes: Denies blurry vision ENT Ears, Nose, Mouth, and Throat: Denies dizziness, Denies sore throat and Denies throat swelling Cardiovascular Cardiovascular: Denies chest pain and Denies dyspnea Respiratory Respiratory: Denies cough and Denies dyspnea Gastrointestinal Gastrointestinal: Denies abdominal pain, Denies diarrhea, Reports nausea and Denies vomiting Genitourinary Genitourinary: Denies hematuria and Denies dysuria Musculoskeletal Musculoskeletal: Denies back pain and Denies numbness Integumentary/Breasts Skin/Breast: Denies lesions and Denies rash Neurologic Neurologic: Denies dizziness, Denies localized weakness and Denies numbness Allergic/Immunologic Allergic/Immunologic: Denies throat swelling PFSH All Active Problems (Updated 03/22/22 @ 10:25 by Beryl Wilde DO) Accidental benzocaine overdose (Acute) Sinusitis (Acute) Smoker (Acute) Colonic dysmotility (Acute) left Palpitations (Acute) Dizziness (Acute) Stress (Acute) Medical History (Updated 03/22/22 @ 10:25 by Beryl Wilde DO) Colocutaneous fistula repair Enterocolitis 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 Paternal Grandmother , 80'S Depression Social History (Updated 01/08/21 @ 08:22 by Eda Narvaez) Smoking/Tobacco Use Status: Current every day Tobacco Type: cigarettes Quit status: quit date established Second Hand Exposure: Yes Smoking risk assessment performed?: Yes Alcohol Intake: current Alcohol Intake frequency: a few times a week Alcohol type: beer Drug use: Never Substance use type: does not use Caregiver/Support person: No Household members: spouse Communication Needs: None Do you need help understanding health information?: Never Pets and animals: Yes Pets and animals: dog(s) Sexually active: Yes Do you think of yourself as: straight/heterosexual Current gender identity: female What is your relationship status?: How often do you talk on the phone with friends or family?: three or more times per week How often do you get together with friends or relatives?: once per week How often do you attend confucianism or muslim services?: decline to answer Do you belong to any clubs or organized social groups?: no Panel score (0-1 are the most socially isolated patients): 2 What type of physical activity do you participate in: bicycling and weight lifting Mercedes/Restorationist: No preference Special mercedes needs: No Seatbelt use: always Helmet use: Yes Helmet use: always Drive intox or ride w/intox spike driver: No Do you feel safe at home: Yes Do you feel safe in your relationship?: Yes Exam Const General: cooperative, no acute distress and anxious Orientation: alert, awake and oriented x3 HENMT Head: normal to inspection Mouth: oral mucosae normal Eyes General: appearance normal, both eyes and all related structures Neck Neck: normal visual inspection Resp Effort & Inspection: normal respiratory effort and able to speak in complete sentences Auscultation: clear to auscultation bilaterally Cardio Rate: regular rate GI Palpation: soft, not firm, no guarding, not rigid and nontender Skin General skin exam: no rashes or lesions noted Neuro General: patient alert, patient awake and patient oriented x3 Motor: muscle tone normal throughout Extrem General: normal to inspection, full ROM and no edema Psych Appearance: grossly normal Affect: normal affect
[2022-03-22 09:39] VITALS: RESP 16
[2022-03-22 10:21] VITALS: BP 154/81; PULSE 82; RESP 16; O2SAT 97
[2022-03-22 10:33] VITALS: BP 132/80; O2SAT 97
== END 2022-03-22 10:36 | disposition home or self-care (01) ==
PROVIDERS: Emergency Provider Physician Assistant; PCP Nurse Practitioner Family
DX: T41.3X1A Poisoning by local anesthetics, accidental (unintentional), initial encounter (principal); R11.0 Nausea; R35.89 Other polyuria; R53.83 Other fatigue; F17.210 Nicotine dependence, cigarettes, uncomplicated
CPT/HCPCS: 99281; 99284

== ENCOUNTER 2024-04-25 09:47 | Emergency (ER) | payer OTHER, SELFPAY ==
[2024-04-25] VITALS (11 sets, daily range): BP systolic 124–147; BP diastolic 73–88; PULSE 81–101; RESP 17; TEMP 36.4; O2SAT 97–100
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
[2024-04-25 10:41] LABS: Abs Immature Grans 0.03 10^3/uL (0.0-0.06); Absolute Basophil Count 0.04 10^3/uL (0.0-0.2); Absolute Eosinophil Count 0.06 10^3/uL (0.0-0.7); Absolute Lymphocyte Count 2.05 10^3/uL (1.2-3.4); Absolute Monocyte Count 0.94 10^3/uL (0.1-0.8); Absolute Neutrophil Count 9.56 10^3/uL (1.2-6.7); Basophils % 0.3 %; Eosinophils % 0.5 %; HGB 15.3 g/dL (13.5-17.5); Immature Grans % 0.2 %; Lactate 0.6 mmol/L (0.6-1.4); Lymphocytes % 16.2 %; MCH 30.1 pg (27.0-33.0); MCHC 33.3 % (32.0-36.0); MCV 90 fL (80-95); MPV 9.5 fL (8.0-11.0); Monocytes % 7.4 %; Neutrophils % 75.4 %; Platelet Count 164 10^3/uL (130-400); RBC 5.09 10^6/uL (4.36-5.78); RDW-SD 43.5 fL; WBC 12.68 10^3/uL (4.4-10.8)
[2024-04-25 10:42] LABS: ESR 7 mm/hr (0-15)
--- NOTE | 2024-04-25 10:48 | DI.RAD_ITS ---
Exam(s) XR KNEE LT 3V AP,LAT,GERRY EXAM: XR KNEE LT 3V AP,LAT,GERRY CLINICAL HISTORY: pain and swelling. TECHNIQUE: 2D digital imaging was performed. Three views. COMPARISON: No exams were available for comparison FINDINGS: BONES: No acute fracture is present. No bony destructive lesion is seen. JOINTS: The knee is normally aligned. No joint effusion is seen. Joint spaces are maintained. SOFT TISSUE: Prom soft tissue swelling anteriorly.. IMPRESSION: Marked anterior soft tissue swelling. No bony abnormality. DATA REPOSITORY: RADIATION DOSE DELIVERED:
[2024-04-25 10:59] LABS: C-Reactive Protein 7.24 mg/dL (<or=0.5)
[2024-04-25 11:01] LABS: ALT 24 U/L (16-63); AST 13 U/L (15-37); Albumin 3.8 g/dL (3.4-5.0); Alkaline Phosphatase 78 U/L (46-116); Anion Gap 9.6 mmol/L (3-11); BUN 15 mg/dL (7-18); Bilirubin, Total 0.61 mg/dL (0.2-1.0); CO2 28.4 mmol/L (21.0-32.0); Chloride 105 mmol/L (98-107); Estimated GFR 97.58 (mL/min/1.73m2); Glucose 136 mg/dL (74-106); Potassium 4.6 mmol/L (3.5-5.1); Sodium 143 mmol/L (136-145); Total Protein 7.4 g/dL (6.4-8.2)
[2024-04-25] MEDS: Clindamycin 150 MG CAP 450 MG PO (11:18)
[2024-04-25] MEDS: predniSONE 20 MG TAB 60 MG PO (11:19)
[2024-04-25 11:28] LABS: Procalcitonin < 0.1 ng/mL
[2024-04-26 09:55] LABS: Lyme Ab w Rflx to Lyme Confirm Negative (Negative)
[2024-04-27 23:45] LABS: Anaplasma phagocytophilum Negative (Negative); B. miyamotoi PCR Negative (Negative); Babesia divergens/MO-1 Negative (Negative); Babesia duncani Negative (Negative); Babesia microti Negative (Negative); Ehrlichia chaffeensis Negative (Negative); Ehrlichia ewingii/canis Negative (Negative); Ehrlichia muris eauclairensis Negative (Negative)
== END 2024-04-25 11:53 | disposition home or self-care (01) ==
PROVIDERS: Emergency Provider Emergency Medicine; PCP Nurse Practitioner Family
DX: L03.116 Cellulitis of left lower limb (principal); F17.210 Nicotine dependence, cigarettes, uncomplicated
CPT/HCPCS: 36415; 73562; 80053; 84145; 85652; 87798; 99284; 83605; 83735; 85025; 86140; 86618; 99283; J7512

== ENCOUNTER → 2024-05-05 11:34 | Outpatient (CLI) | payer OTHER, SELFPAY ==
--- NOTE | 2024-05-05 09:15 | DI.RAD_ITS ---
Exam(s) XR KNEE LT 3V AP,LAT,GERRY EXAM: XR KNEE LT 3V AP,LAT,GERRY CLINICAL HISTORY: R/O septic arthritis,PAIN,m00.9. TECHNIQUE: 2D digital imaging was performed. COMPARISON: CR XR KNEE LT 3V AP,LAT,GERRY from 04/25/2024 FINDINGS: 3 views No evidence of fracture nor obvious joint effusion. However, there is prominent soft tissue swelling anterior to the knee from mid aspect the patella down to the anterior tibial tubercle with silhouett ing of the patellar ligament. There is no radiopaque foreign body evident within the swollen soft ti ssues. The intra-articular Hoffa fat pad appears unremarkable. No osseous lesions. No evidence of osteomyelitis. No degenerative changes. No osteochondral defects. No osseous erosions IMPRESSION: Prominent soft tissue swelling anterior to the knee. No radiopaque foreign body. No acute osseous f indings in the knee. DATA REPOSITORY: RADIATION DOSE DELIVERED:
[2024-05-05 09:59] LABS: Abs Immature Grans 0.03 10^3/uL (0.0-0.06); Absolute Basophil Count 0.04 10^3/uL (0.0-0.2); Absolute Eosinophil Count 0.24 10^3/uL (0.0-0.7); Absolute Lymphocyte Count 2.14 10^3/uL (1.2-3.4); Absolute Monocyte Count 0.52 10^3/uL (0.1-0.8); Absolute Neutrophil Count 5.51 10^3/uL (1.2-6.7); Basophils % 0.5 %; Eosinophils % 2.8 %; HCT 48.3 % (40.0-50.0); HGB 16.1 g/dL (13.5-17.5); Immature Grans % 0.4 %; Lymphocytes % 25.2 %; MCHC 33.3 % (32.0-36.0); MCV 90 fL (80-95); Monocytes % 6.1 %; Platelet Count 236 10^3/uL (130-400); RBC 5.36 10^6/uL (4.36-5.78); RDW 13.1 % (11.8-14.1); RDW-SD 42.9 fL; WBC 8.48 10^3/uL (4.4-10.8)
[2024-05-05 10:01] LABS: ESR 5 mm/hr (0-15)
[2024-05-05 10:15] LABS: Calculated LDL 155 mg/dL (<100); Cholesterol 219 mg/dL (<200); HDL Cholesterol 46 mg/dL (40-60); Triglyceride 91 mg/dL (<150)
[2024-05-05 11:21] LABS: Hemoglobin A1C 5.9 % (<5.7)
== END ==
PROVIDERS: PCP Nurse Practitioner Family; Visit Provider Nurse Practitioner Family
DX: M00.9 Pyogenic arthritis, unspecified (principal); Z13.220 Encounter for screening for lipoid disorders; Z13.1 Encounter for screening for diabetes mellitus; M25.461 Effusion, right knee
CPT/HCPCS: 36415; 73562; 80061; 85652; 83036; 85025

== ENCOUNTER 2024-07-21 10:49 | Emergency (ER) | payer OTHER, SELFPAY ==
[2024-07-21] VITALS (15 sets, daily range): BP systolic 150–165; BP diastolic 88–98; PULSE 77–111; RESP 7–21; TEMP 36.8; O2SAT 98–100
--- NOTE | 2024-07-21 11:00 | DI.CT_ITS ---
Exam(s) CT ABDOMEN PELVIS W EXAM: CT ABDOMEN PELVIS W CLINICAL HISTORY: left sided abominal pain, prior colectomy. TECHNIQUE: Imaging Protocol: Axial computed tomography images with coronal and sagittal reformatted images were created and reviewed CONTRAST MATERIAL: Intravenous: Omnipaque-350 100cc Oral: None COMPARISON: CT CT CHEST PE CTA from 12/23/2020 FINDINGS: VISUALIZED LUNG BASES: No nodules nor pleural effusions evident. ABDOMEN: There is no ascites. LIVER: There is a 2.7 by 2.8 by 4 cm lesion in the liver which is not a simple cyst. Possibly may re present a cavernous hemangioma difficult to assess accurately on a single sequence study. No other f ocal liver findings. No dilated intrahepatic ducts. GALLBLADDER/BILIARY: No obvious gallbladder pathology. CBD is not dilated. PANCREAS: No evidence of pancreatic mass nor dilatation of the pancreatic duct. SPLEEN: There is a 5.7 x 5 x 5.3 cm partially septated cyst in the inferior half of the spleen. This has increased in size from 2020. Spleen size is upper normal. Splenic and portal veins are patent. ADRENALS: There are no significant adrenal masses. KIDNEYS:There is some mild rotation of the kidneys. Extrarenal pelves are slightly prominent. Urete rs are not significantly dilated. No radiopaque calculi in the ureters and kidneys nor within the ur inary bladder. No significant cysts nor solid lesions seen in the kidneys. ABDOMINAL AORTA: Abdominal aorta is not enlarged. LYMPH NODES:There is no retroperitoneal nor paraaortic adenopathy. ABDOMINAL WALL: There is asymmetric atrophy of the left rectus abdominus muscle. I note this patient has had left-sided anterior abdominal wall surgery. Right rectus abdominus muscle appears unremarka ble. There is a fat only containing umbilical hernia sac. GI: There is subtotal colectomy. No evidence of small-bowel obstruction or free air nor abscess. PELVIS: GI: Appendix is surgically absent.No evidence of sigmoid diverticulitis. LYMPH NODES: There is no intrapelvic nor inguinal adenopathy. REPRODUCTIVE: Prostate size normal. Seminal vesicles unremarkable. URINARY BLADDER: No calculi nor obvious masses evident OSSEOUS: No fractures and no significant osseous lesions. Sacroiliac joints appear unremarkable. No compression fractures. No disc space narrowing. No listh esis. IMPRESSION: 1. There is evidence of prior subtotal colectomy. There is abundant fecal material noted in the rect osigmoid. There is no bowel obstruction, free air, nor abscess. 2. There is a 5.7 x 5 x 5.3 cm partially septated cyst in the inferior half of the spleen which is in creased in size from lowermost images of the chest CT scan performed November 2020. Spleen size itself is upper normal. 3. There is a 2.7 x 2.8 x 4.0 cm non-cystic lesion in the liver. May be a hemangioma but difficult t o assess on this type of study and would require MRI with contrast using liver hemangioma protocol. 4. Left anterior rectus abdominus muscle is atrophic. 5. Mild rotation of the kidneys. Prominence both renal pelves but no true hydronephrosis. No solid renal masses. No calculi. Called by myself to ER physician 07/21/2024 at 12:05 noon RADIATION DOSE DELIVERED: 371.83mGy.cm Total DLP DATA REPOSITORY: All CT scans at this facility are submitted to the National Radiology Data Registry (NRDR) Dose Index Registry (DIR) with the [employer] (ACR). RADIATION OPTIMIZATION: All CT scans at this facility use at least one of these dose optimization te chniques: automated exposure control; mA and/or kV adjustment per patient size (includes targeted exa ms where dose is matched to clinical indication); or iterative reconstruction.
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
[2024-07-21 11:27] LABS: Abs Immature Grans 0.03 10^3/uL (0.0-0.06); Absolute Basophil Count 0.06 10^3/uL (0.0-0.2); Absolute Eosinophil Count 0.05 10^3/uL (0.0-0.7); Absolute Lymphocyte Count 1.89 10^3/uL (1.2-3.4); Absolute Monocyte Count 0.47 10^3/uL (0.1-0.8); Absolute Neutrophil Count 6.61 10^3/uL (1.2-6.7); Basophils % 0.7 %; Eosinophils % 0.5 %; HCT 46.8 % (40.0-50.0); HGB 15.7 g/dL (13.5-17.5); Immature Grans % 0.3 %; Lymphocytes % 20.7 %; MCH 29.6 pg (27.0-33.0); MCHC 33.5 % (32.0-36.0); MCV 88 fL (80-95); MPV 8.9 fL (8.0-11.0); Monocytes % 5.2 %; Neutrophils % 72.6 %; Platelet Count 181 10^3/uL (130-400); RDW-SD 42.5 fL; WBC 9.11 10^3/uL (4.4-10.8)
[2024-07-21 11:30] LABS: Bilirubin Negative (Negative); Blood Negative (Negative); Clarity Clear (Clear); Glucose Negative (Negative); Ketones Negative (Negative); Leukocyte Esterase Negative (Negative); Nitrite Negative (Negative); Urobilinogen 0.2 mg/dL (Up to 0.2); pH 5.5 (5-8)
[2024-07-21 11:39] LABS: Bilirubin, Direct 0.1 mg/dL (0.0-0.2); Lipase 15 U/L (16-77)
[2024-07-21] MEDS: Normal Saline - Diluent 50 ML VIAL IJ (11:41)
[2024-07-21] MEDS: Omnipaque 350 MG/ML 100 ML BTL IJ (11:42)
[2024-07-21 11:51] LABS: ALT 38 U/L (16-63); AST 23 U/L (15-37); Alkaline Phosphatase 84 U/L (46-116); Anion Gap 8.2 mmol/L (3-11); BUN 18 mg/dL (7-18); Bilirubin, Total 0.49 mg/dL (0.2-1.0); CO2 26.8 mmol/L (21.0-32.0); Calcium 9.2 mg/dL (8.5-10.1); Chloride 106 mmol/L (98-107); Estimated GFR 96.97 (mL/min/1.73m2); Glucose 116 mg/dL (74-106); Potassium 4.2 mmol/L (3.5-5.1); Sodium 141 mmol/L (136-145); Total Protein 7.6 g/dL (6.4-8.2)
== END 2024-07-21 12:54 | disposition home or self-care (01) ==
PROVIDERS: Emergency Provider Emergency Medicine; PCP Nurse Practitioner Family
DX: R10.32 Left lower quadrant pain (principal)
CPT/HCPCS: 36415; 80053; 83690; 99285; 74177; 81003; 82248; 83735; 85025; 99283; J3490

== ENCOUNTER 2024-08-12 00:23 | Outpatient (CLI) | payer OTHER, SELFPAY ==
--- NOTE | 2024-08-12 06:45 | DI.MRI_ITS ---
Exam(s) MR ABDOMEN WO/W EXAM: MR ABDOMEN WO/W CLINICAL HISTORY: LIVER Lesion found on CT,K76.9 TECHNIQUE: Multiplanar multisequence MRI of the Abdomen was performed. CONTRAST MATERIAL: IV Contrast: 19 mL of Dotarem contrast administered. COMPARISON: CT CT CHEST PE CTA from 12/23/[address] ABDOMEN PELVIS W from 07/21/2024 FINDINGS: Liver: 2 circumscribed high T2 signal lesions in the left lobe, the larger measuring 3 cm. The small er nearby lesion measures 1.8 cm. The enhancement characteristics are consistent with hemangiomas. Pancreas: Unremarkable. Gallbladder and Bile Ducts: Unremarkable. Adrenals: Unremarkable. Kidneys: Mild bilateral malrotation. Spleen: 5.5 x 4.4 by 4.9 cm circumscribed cystic lesion with multiple septations. No evidence of enh ancement or internal debris. The findings could represent an epithelial cyst however given multiple septations an echinococcal cyst should also be considered. Lymphangioma is also a possibility. Aorta: Unremarkable. Soft Tissues: Unremarkable. Bone: Unremarkable. Lymph Nodes: Unremarkable. Lung bases: Unremarkable. Stomach and bowel: Unremarkable. Peritoneal cavity: Unremarkable. No evidence of ascites. IMPRESSION: Two liver lesions are consistent with hemangiomas. 5.5 cm splenic cystic lesion with multiple septations. Differential considerations are epithelial cy sts, echinococcal cyst or lymphangioma. DATA REPOSITORY:
[2024-08-12] MEDS: Normal Saline - Diluent 50 ML VIAL 25 ML IJ (09:27)
[2024-08-12] MEDS: Gadoterate meglumine 20 ML VIAL 19 ML IVP (09:28)
== END 2024-08-12 00:43 ==
LOC: DI 00:24
PROVIDERS: PCP Nurse Practitioner Family; Visit Provider Nurse Practitioner Family
DX: D18.09 Hemangioma of other sites (principal)
CPT/HCPCS: 74183